=== PATIENT | female | born 1955 | race Caucasian/White ===

== ENCOUNTER → 2018-08-10 | Outpatient (CLI) | payer OTHER, MEDICARE ==
[~2018-08-10] MED LIST: ASPI325T6 PO; BENADRYL25 M2 PO; BENICAR 20MG TA20 MG PO; CELEBREX 200MG200 MG PO; HCTZ 25MG TAB25 MG PO; HYDROCHLOR50 MG PO; LYRICA 50MG CAP50 MG PO; NORCO 325 MG-101 TAB PO; PAXIL 20MG20 MG PO; PERCOCET 325 MG1 TA2 PO; PROTONIX 40MG T40 MG PO; ROXICODONE 55 MG/TAB PO; SENOKOT S 50 MG1 TAB PO; WELLBUTRIN XL300 M1 PO
== END ==
LOC: MC.RAD 09:32
DX: Z12.31 Encounter for screening mammogram for malignant neoplasm of breast (principal)

== ENCOUNTER → 2018-08-29 | Outpatient (CLI) | payer BC, MEDICARE | LOC: COL.VAS 10:45 | DX: R01.1 Cardiac murmur, unspecified (principal) ==